=== PATIENT | female | born 1965 | race Asian ===

== ENCOUNTER 2018-06-12 12:13 | Emergency (ER) | payer SELFPAY ==
[~2018-06-12] VITALS: Ht 154.9 cm; Wt 83.9 kg
[2018-06-12] MEDS ORDERED: Lidocaine 2% Visc 15ml soln ORAL ONE (12:30)
[2018-06-12] MEDS ORDERED: Mylanta II UD 30ml ORAL ONE (12:30)
[2018-06-12] MEDS ORDERED: Albuterol ud Inhalation HHN ONE (12:30)
[2018-06-12 12:31] VITALS: BP 114/82
--- NOTE | 2018-06-12 12:41 | Emergency Room Report ---
History of Present Illness General Chief Complaint: General Complaint Source: Patient Present Illness HPI 52-year-old female presents to the emergency department complaining of substernal chest pain with shortness of breath and coughing intermittently 1 week. Patient also reports nausea, vomiting and epigastric abdominal pain 2 days. Patient denies fevers, chills, recent travel or ill contacts with similar symptoms. No constipation or diarrhea Patient denies significant past medical history, denies known cardiac pathology. Reports pain is worse with exertion however she has experienced pain while at rest. She is also describing a decrease in appetite she denies diarrhea or constipation. Denies palpitations, dizziness syncope or weakness. Allergies: Coded Allergies: No Known Allergies (Unverified , 06/12/18) Patient History Past Medical History: see triage record Past Surgical History: none Pertinent Family History: none Now: No Reviewed Nursing Documentation: PMH: Agreed; PSxH: Agreed Nursing Documentation-PMH Past Medical History: No Stated History Review of Systems All Other Systems: negative except mentioned in HPI Physical Exam Vital Signs Date Time Temp Pulse Resp B/P (MAP) Pulse Ox O2 Delivery O2 Flow Rate FiO2 06/12/18 12:21 97.9 85 20 114/82 96 Room Air Sp02 EP Interpretation: reviewed, normal General Appearance: alert, GCS 15, non-toxic, mild distress Head: normocephalic, atraumatic Eyes: bilateral eye normal inspection, bilateral eye PERRL ENT: hearing grossly normal, normal voice Neck: full range of motion Respiratory: lungs clear, normal breath sounds, speaking full sentences, wheezing - expiratory Cardiovascular #1: regular rate, rhythm, no edema Gastrointestinal: normal bowel sounds, non tender, soft, non-distended, no guarding Rectal: deferred Genitourinary: normal inspection, no CVA tenderness Musculoskeletal: back normal, gait/station normal, normal range of motion, non- tender Neurologic: alert, oriented x3, responsive, motor strength/tone normal, sensory intact, speech normal, grossly normal Psychiatric: judgement/insight normal Skin: normal color, no rash, warm/dry, well hydrated Lymphatic: no adenopathy Medical Decision Making PA Attestation Dr. parisi is my supervising Physician whom patient management has been discussed with. Diagnostic Impression: Primary Impression: Bronchitis Additional Impression: Gastritis Qualified Codes: K29.60 - Other gastritis without bleeding ER Course 52-year-old female presents to the emergency department complaining of substernal chest pain with shortness of breath and coughing intermittently 1 week. Patient also reports nausea, vomiting and epigastric abdominal pain 2 days. Patient denies fevers, chills, recent travel or ill contacts with similar symptoms. No constipation or diarrhea Patient denies significant past medical history, denies known cardiac pathology. Reports pain is worse with exertion however she has experienced pain while at rest. She is also describing a decrease in appetite she denies diarrhea or constipation. Denies palpitations, dizziness syncope or weakness. Ddx considered but are not limited to AR, pneumonia, contusion, costochondritis , PE, ACS, Shoulder strain, Chest wall contusion. aortic dissection. Vital signs: are WNL, pt. is afebrile H&PE are most consistent with Tightness with gastritis however due to patient age and description character presenting symptoms will rule out cardiac pathology as well as pneumonia. ORDERS: - EK NSR -CBC: WBC 14. 2--- most likely stress reaction -CMP: WNL -Troponins: WNL CXR: unremarkable ED INTERVENTIONS: - nebulized albuterol -GI cocktail + Pepcid -I do not identify an emergent condition at this time. With current presentation , pt. is stable for close outpatient follow up and conservative treatment. D/ w pt. to return promptly to ED with worsening or new symptoms.- Pt. verbalizes' understanding and agreement with proposed treatment plan.proposed treatment plan. DISCHARGE: At this time pt. is stable for d/c to home. Will provide printed patient care instructions, and any necessary prescriptions. Care plan and follow up instructions have been discussed with the patient prior to discharge. Labs Test 06/12/18 12:40 White Blood Count 14.2 K/UL (4.8-10.8) Red Blood Count 4.95 M/UL (4.20-5.40) Hemoglobin 15.4 G/DL (12.0-16.0) Hematocrit 45.3 % (37.0-47.0) Mean Corpuscular Volume 91 FL (80-99) Mean Corpuscular Hemoglobin 31.1 PG (27.0-31.0) Mean Corpuscular Hemoglobin Concent 34.0 G/DL (32.0-36.0) Red Cell Distribution Width 11.6 % (11.6-14.8) Platelet Count 282 K/UL (150-450) Mean Platelet Volume 7.0 FL (6.5-10.1) Neutrophils (%) (Auto) 71.0 % (45.0-75.0) Lymphocytes (%) (Auto) 22.3 % (20.0-45.0) Monocytes (%) (Auto) 5.3 % (1.0-10.0) Eosinophils (%) (Auto) 0.7 % (0.0-3.0) Basophils (%) (Auto) 0.6 % (0.0-2.0) Sodium Level 138 MMOL/L (136-145) Potassium Level 3.9 MMOL/L (3.5-5.1) Chloride Level 101 MMOL/L (98-107) Carbon Dioxide Level 27 MMOL/L (21-32) Anion Gap 10 mmol/L (5-15) Blood Urea Nitrogen 13 mg/dL (7-18) Creatinine 0.9 MG/DL (0.55-1.30) Estimat Glomerular Filtration Rate > 60 mL/min (>60) Glucose Level 110 MG/DL (74-106) Calcium Level 9.0 MG/DL (8.5-10.1) Total Bilirubin 0.4 MG/DL (0.2-1.0) Aspartate Amino Transf (AST/SGOT) 21 U/L (15-37) Alanine Aminotransferase (ALT/SGPT) 31 U/L (12-78) Alkaline Phosphatase 61 U/L (46-116) Total Creatine Kinase 39 U/L (26-308) Troponin I 0.017 ng/mL (0.000-0.056) Total Protein 8.1 G/DL (6.4-8.2) Albumin 3.5 G/DL (3.4-5.0) Globulin 4.6 g/dL Albumin/Globulin Ratio 0.8 (1.0-2.7) Lipase 96 U/L (73-393) EKG Diagnostic Results EP Interpretation: Dr. Belcher Rate: normal - 73bpm Rhythm: NSR ST Segments: no acute changes ASA given to the pt in ED: No PA Scribe Text This Interpretation was scribed by CRISTY Vargas. Chest X-Ray Diagnostic Results Chest X-Ray Diagnostic Results : Chest X-Ray Ordered: Yes # of Views/Limited/Complete: 1 View Indication: Chest Pain EP Interpretation: Yes PA Xray: Interpretation reviewed, by supervising MD, and agrees with findings. Interpretation: no consolidation, no effusion, no pneumothorax, no acute cardiopulmonary disease Impression: No acute disease Electronically Signed by: Diana Vargas PA-C Last Vital Signs Date Time Temp Pulse Resp B/P (MAP) Pulse Ox O2 Delivery O2 Flow Rate FiO2 06/12/18 12:31 85 20 Room Air 06/12/18 12:31 97.9 114/82 96 Status: improved Disposition: HOME, SELF-CARE Condition: Stable Scripts Codeine/Promethazine Hcl* (PROMETHAZINE-CODEINE SYRUP*) 118 Ml Syrup 5 ML ORAL Q6H PRN for For Cough, #120 ML 0 Refills Prov: Diana Vargas 06/12/18 Ranitidine Hcl* (ZANTAC*) 150 Mg Tablet 150 MG ORAL TWICE A DAY for 7 Days, #14 TAB Prov: Diana Vargas 06/12/18 Famotidine (PEPCID AC) 20 Mg Tablet 20 MG PO DAILY, #14 TAB Prov: Diana Vargas 06/12/18 Albuterol Sulfate* (ALBUTEROL SULFATE MDI*) 8.5 Gm Hfa.aer.ad 2 PUFF INH Q3H, #1 INH 2 Refills Prov: Diana Vargas 06/12/18 Additional Instructions: Take medications as directed. Follow up with a Primary Care Provider in 3-5 days, even if your symptoms have resolved. --Please review list of primary care clinics, if you do not already have a primary care provider Return sooner to ED if new symptoms occur, or current symptoms become worse. - Please note that this Emergency Department Report was dictated using [employer] shoe ragger technology software, occasionally this can lead to erroneous entry secondary to interpretation by the dictation equipment. Diana Vargas Jun 12, 2018 12:41
--- NOTE | 2018-06-12 12:51 | NUR ---
ED Nurse Note:pt. came with c/o nausea abd pain and flu like symptoms, blood sent to labs, meds and IV fluids given
[2018-06-12 12:55] LABS: BASOPHILS % (AUTO) 0.6 % (0.0-2.0); EOSINOPHILS % (AUTO) 0.7 % (0.0-3.0); HEMATOCRIT 45.3 % (37.0-47.0); HEMOGLOBIN 15.4 G/DL (12.0-16.0); LYMPHOCYTES % (AUTO) 22.3 % (20.0-45.0); MEAN CORPUSCULAR VOLUME 91 FL (80-99); MONOCYTES % (AUTO) 5.3 % (1.0-10.0); PLATELET COUNT 282 K/UL (150-450); RED BLOOD COUNT 4.95 M/UL (4.20-5.40); RED CELL DISTRIBUTION WIDTH 11.6 % (11.6-14.8); WHITE BLOOD COUNT 14.2 K/UL (4.8-10.8)
[2018-06-12 13:03] LABS: ANION GAP 10 mmol/L (5-15); BLOOD UREA NITROGEN 13 mg/dL (7-18); CARBON DIOXIDE 27 MMOL/L (21-32); CHLORIDE 101 MMOL/L (98-107); CREATININE 0.9 MG/DL (0.55-1.30); POTASSIUM 3.9 MMOL/L (3.5-5.1); SODIUM 138 MMOL/L (136-145)
[2018-06-12 13:08] LABS: ALANINE AMINOTRANSFERASE 31 U/L (12-78); ALBUMIN 3.5 G/DL (3.4-5.0); ALBUMIN/GLOBULIN RATIO 0.8 (1.0-2.7); ALKALINE PHOSPHATASE 61 U/L (46-116); ASPARTATE AMINO TRANSFERASE 21 U/L (15-37); BILIRUBIN,TOTAL 0.4 MG/DL (0.2-1.0); CREATINE KINASE 39 U/L (26-308)
[2018-06-12] MEDS ORDERED: PEPCID AC20 M2 PO (14:34)
[2018-06-12] MEDS ORDERED: ALBUTEROL SULF8.5 GM INH (14:34)
[2018-06-12] MEDS ORDERED: ZANTAC150 MG ORAL (14:34)
[2018-06-12] MEDS ORDERED: PROMETHAZINE-C118 M1 ORAL (14:34)
[2018-06-12 15:03] VITALS: BP 114/82
--- NOTE | 2018-06-12 15:04 | NUR ---
ER DISCHARGE NOTE: Patient is cleared to be discharged per ERMD, pt is aox4, on room air, with stable vital signs. pt was given dc and prescription instructions, pt was able to verbalize understanding, pt id band and iv site removed without complications. pt is able to ambulate with steady gait. pt took all belongings.
--- NOTE | 2018-06-12 16:42 | Diagnostic Imaging Report ---
Indication: Chest pain Technique: One view of the chest Comparison: none Findings: The lungs and pleural spaces are clear. The heart size is normal. The aorta is tortuous. Upper mediastinum is unremarkable. Impression: No acute process
--- NOTE | 2018-06-14 18:09 | Cardiology Report ---
APPROVED REPORT EKG Measurement Heart [id number] Normal sinus rhythm Normal ECG
== END 2018-06-12 15:10 | disposition home or self-care (01) ==
LOC: EMR 15:10
DX: J40 Bronchitis, not specified as acute or chronic (principal); K29.60 Other gastritis without bleeding
CPT/HCPCS: 36415; 71045; 80053; 82550; 83690; 84484; 85025; 93005; 94640; 94664; 96361; 96374; 99284; J2405